=== PATIENT | female | born 1995 | race African-American/Black ===

== ENCOUNTER 2017-09-08 10:25 | Emergency (ER) | payer BC ==
[~2017-09-08] VITALS: Ht 180.3 cm; Wt 68.0 kg
[2017-09-08 10:26] VITALS: BP 139/75; PULSE 92; RESP 16; TEMP 98.9; O2SAT 99
[2017-09-08] MEDS ORDERED: CLOT1CRE6 TOPICAL (11:06)
--- NOTE | 2017-09-08 11:07 | PD ---
HPI Chief Complaint: Skin Problem Time Seen by Provider: 10:33 Travel History International Travel<30 days: No Contact w/Intl Traveler<30days: No Traveled to known affect area: No History of Present Illness HPI This is a 21-year-old female here with rash to her trunk 3 days. She reports the rash is pruritic. She denies any new medications, detergents, body lotions , perfumes, foods. She has not attempted any vcho-ywy-ijkidgc products for symptom relief. She denies any other symptoms. Symptom severity is mild. [facility] Past Medical History Medical History: Denies Significant Hx ?: Not LMP: 08/17/17 Social History Alcohol Use: No Tobacco Use: No Substance Use: No Allergies-Medications (Allergen,Severity, Reaction): Coded Allergies: No Known Allergies (Unverified Adverse Reaction, Unknown, 09/08/17) Reported Meds & Prescriptions Reported Meds & Active Scripts Active No Active Prescriptions or Reported Medications Review of Systems Except as stated in HPI: all other systems reviewed are Neg General / Constitutional: No: Fever Skin: Positive Rash Physical Exam Narrative GENERAL: Alert female. Well-appearing. SKIN: Warm and dry. Patient has double well demarcated oval slightly raised lesions all less than 0.5 cm to back and left flank region. The lesions are consistent with fungal rash HEAD: Normocephalic. EYES: No scleral icterus. No injection or drainage. NECK: Supple, trachea midline. No JVD or lymphadenopathy. CARDIOVASCULAR: Regular rate and rhythm without murmurs, gallops, or rubs. RESPIRATORY: Breath sounds equal bilaterally. No accessory muscle use. Data Data Last Documented VS Vital Signs Date Time Temp Pulse Resp B/P (MAP) Pulse Ox O2 Delivery O2 Flow Rate FiO2 09/08/17 10:26 98.9 92 16 139/75 (96) 99 Room Air MDM Medical Decision Making Medical Screen Exam Complete: Yes Emergency Medical Condition: Yes Differential Diagnosis Tinea corporis, erythema multiform, viral rash Narrative Course 21-year-old female here with what appears to be a fungal rash. She'll be treated with topical antifungals and instructed take Benadryl. Diagnosis Primary Impression: Tinea corporis Referrals: [facility] Additional Instructions: Take hten-ybe-atixugy Benadryl 25 mg 1 every 6 hours as needed for itching. Scripts Clotrimazole Topical (Clotrimazole Anti-Fungal Topical) 1% Cream 1 APPLIC TOPICAL BID for Fungal Infection, #1 TUBE 0 Refills Prov: Aimee Ferraro 09/08/17 Disposition: 01 DISCHARGE HOME Condition: Stable Aimee Ferraro Sep 08, 2017 11:07
== END 2017-09-08 11:18 | disposition home or self-care (01) ==
LOC: NEPK 10:25
DX: B35.4 Tinea corporis (principal)
CPT/HCPCS: 99283